=== PATIENT | female | born 1985 | race Caucasian/White ===

== ENCOUNTER 2017-02-07 18:18 | Observation (INO) | payer OTHER ==
[2017-02-07] MEDS ORDERED: DIAZEPAM 5 MG/ML SYRG ONE (18:42)
[2017-02-07 18:44] LABS: Hematocrit 30.8 % (37.0-47.0); Hemoglobin 10.4 gm/dL (12.5-16.0); Mean Cell Volume 93.1 fl (78-100); Mean Corpuscular Hemoglobin 31.4 pg (27-31); Mean Corpuscular Hgb Conc 33.8 g/dl (32-36); Neutrophil # 8.3 K/mm3 (1.3-6.0); Platelet Count 263 K/mm3 (150-450); Red Blood Count 3.31 M/mm3 (4.2-5.4); Red Cell Distribution Width 13.2 % (11.5-14.0); White Blood Count 13.1 K/mm3 (4.0-10.5)
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
--- OUTSIDE RECORDS SUMMARY | 2017-02-07 18:47 | XMS REPORT | CCD ---
:1985 Author Name KOBY PARSONS Address [address] [facility] Unavailable [place], [place] [id number] Care Team Providers Name Role Phone GLORIA ZARCO Attending Physician Unavailable Vital Signs Unknown or Not Available. [...] Date Resolved Date Status , THREATENED, ANTEPARTUM 62609688 11/10/2011 Active ASTHMA 284865980 11/10/2011 Active OPEN WOUND OF FINGER 884193200 08/29/2012 Active TOBACCO USE DISORDER 19291440 08/29/2012 Active DIZZINESS 552852070 02/03/2013 Active ESSENTIAL HYPERTENSION 10900680 02/03/2013 Active Results Unknown or Not Available. Active Medications Unknown or Not Available. Medications Administered During Visit Unknown or Not Available. 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 Discharge Instructions You were admitted to [facility] on 11/08/2015 08:57 with a principal diagnosis of Carcinoma in situ of cervix, unspecified You were discharged from [facility] on 11/08/2015 08:57 Should you have any questions prior to discharge, please contact a member of your healthcare team. If you have left the hospital and have any questions, please contact your primary care physician. Chief Complaint and Reason For Visit Unknown or Not Available. Function Status Unknown or Not Available. Plan of Care Unknown or Not Available. Referral/Transition of Care Unknown or Not Available.
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
--- OUTSIDE RECORDS SUMMARY | 2017-02-07 18:47 | XMS REPORT | CCD ---
:1985 Author Name PAT DEUTSCH Address [address] [facility] Unavailable [place], [place] [phone] Care Team Providers Name Role Phone KODY HO Attending Physician Unavailable KODY HO Er Physician 1 Unavailable Vital Signs Unknown [...] Date Resolved Date Status , THREATENED, ANTEPARTUM 94355970 11/10/2011 Active Fracture of the humerus 60727353 Active Concussion with no LOC 64836315 Active ASTHMA 235568482 11/10/2011 Active OPEN WOUND OF FINGER 440090813 08/29/2012 Active TOBACCO USE DISORDER 14219771 08/29/2012 Active DIZZINESS 131296383 02/03/2013 Active ESSENTIAL HYPERTENSION 31259936 02/03/2013 Active Results Unknown or Not Available. Active Medications Medication Code Dose Units Frequency Route Modification Start Date/Time Albuterol Sulfate 551989 1 EACH NEEDED INHALATION 12/09/2015 15:59 0.083% Inhalation Solution Prescription Detail 1 EACH INHALATION NEEDED Albuterol Sulfate 0.63MG/3ML 915216 1 EACH NEEDED INHALATION 2015 15:59 Inhalation Solution Prescription Detail 1 EACH INHALATION NEEDED Cara 180MG Oral Tablet 354599 1-2 TABLET NEEDED ORAL 12/09/2015 15:59 Prescription Detail TAKE 1-2 TABLET ORAL NEEDED HYDROcodone 913072 1 TABLET Every 4hr as BY MOUTH 12/09/2015 15:59 bitartrate-acetaminophen needed 10MG-325MG Oral Tablet Prescription Detail TAKE 1 TABLET BY MOUTH Every 4hr as needed Paxil 40MG Oral Tablet 952253 40 MILLIGRAMS DAILY ORAL 12/09/2015 15:59 Prescription Detail TAKE 40 MILLIGRAMS ORAL DAILY QVAR 0.08MG/1 Actuation Inhalation 9344690 2 PUFF DAILY INHALATION 15:59 Aerosol Liquid Prescription Detail 2 PUFF INHALATION DAILY Cephalexin 500MG Oral 567425 1 CAPSULE THREE TIMES A DAY BY MOUTH 12/08 15:39 Capsule Prescription Detail TAKE 1 CAPSULE BY MOUTH THREE TIMES A DAY Medications Administered During Visit Unknown or Not Available. Encounters Encounter Diagnosis Diagnosis Code Start Date Allergic contact dermatitis due to plants, except food L237 11/11/2015 Social History Smoking Status Code Start Date End Date Current every day smoker 591537804 Patient Decision Aids Unknown or Not Available. Discharge Instructions You were admitted to [facility] on 11/11/2015 13:45 with a principal diagnosis of Allergic contact dermatitis due to plants, except food You were discharged from [facility] on 11/11/2015 14:12 Should you have any questions prior to discharge, please contact a member of your healthcare team. If you have left the hospital and have any questions, please contact your primary care physician. Chief Complaint and Reason For Visit Chief Complaint Date of Onset HIVES Function Status Unknown or Not Available. Plan of Care Unknown or Not Available. Referral/Transition of Care Unknown or Not Available.
--- OUTSIDE RECORDS SUMMARY | 2017-02-07 18:47 | XMS REPORT | CCD ---
:1985 Author Name KOBY PARSONS Address [address] [facility] Unavailable [place], [place] [id number] Care Team Providers Name Role Phone GLORIA [...] Date Resolved Date Status , THREATENED, ANTEPARTUM 07762149 11/10/2011 Active ASTHMA 849863392 11/10/2011 Active OPEN WOUND OF FINGER 988959933 08/29/2012 Active TOBACCO USE DISORDER 36131057 08/29/2012 Active DIZZINESS 673322980 02/03/2013 Active ESSENTIAL HYPERTENSION 53345987 02/03/2013 Active Results Unknown or Not Available. Active Medications Unknown or Not Available. Medications Administered During Visit Unknown or Not Available. 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
--- OUTSIDE RECORDS SUMMARY | 2017-02-07 18:47 | XMS REPORT | CCD ---
:1985 Author Name PAT DEUTSCH Address [address] [facility] [place] [address] Care Team Providers Name Role Phone LEILA ARMIJO Attending Physician Unavailable Allergies Allergy Code Allergy Type Reaction Status IBUPROFEN 5640 Drug allergy Active NSAID 0 Drug allergy Active SHARRON INHIBITOR 0 Drug allergy Active No Known Food Allergies 0 Drug allergy Active No Known Drug Allergies 0 Drug allergy Active Active Medications Medication Code Dose Units Frequency Route Modification Start Date/Time Albuterol Sulfate 563337 1 EACH NEEDED INHALATION 12/09/2015 15:59 0.083% Inhalation Solution Prescription Detail 1 EACH INHALATION NEEDED Albuterol Sulfate 0.63MG/3ML 922878 1 EACH NEEDED INHALATION 2015 15:59 Inhalation Solution Prescription Detail 1 EACH INHALATION NEEDED Cara 180MG Oral Tablet 321380 1-2 TABLET NEEDED ORAL 12/09/2015 15:59 Prescription Detail TAKE 1-2 TABLET ORAL NEEDED HYDROcodone 261070 1 TABLET Every 4hr as BY MOUTH 12/09/2015 15:59 bitartrate-acetaminophen needed 10MG-325MG Oral Tablet Prescription Detail TAKE 1 TABLET BY MOUTH Every 4hr as needed Paxil 40MG Oral Tablet 047626 40 MILLIGRAMS DAILY ORAL 12/09/2015 15:59 Prescription Detail TAKE 40 MILLIGRAMS ORAL DAILY QVAR 0.08MG/1 Actuation Inhalation 5181767 2 PUFF DAILY INHALATION 15:59 Aerosol Liquid Prescription Detail 2 PUFF INHALATION DAILY Cephalexin 500MG Oral 967472 1 CAPSULE THREE TIMES A DAY BY MOUTH 12/08 15:39 Capsule Prescription Detail TAKE 1 CAPSULE BY MOUTH THREE TIMES A DAY Problems Problem Code Start Date Resolved Date Status , THREATENED, ANTEPARTUM 76699215 11/10/2011 Active Fracture of the humerus 27775087 Active Concussion with no LOC 03476538 Active ASTHMA 684097265 11/10/2011 Active OPEN WOUND OF FINGER 129960738 08/29/2012 Active TOBACCO USE DISORDER 60207084 08/29/2012 Active DIZZINESS 784145375 02/03/2013 Active ESSENTIAL HYPERTENSION 53573745 02/03/2013 Active Procedures Unknown or Not Available. Results Unknown or Not Available. Encounters Encounter Diagnosis Diagnosis Code Start Date Encounter for removal of sutures Z4802 12/15/2015 Function Status Unknown or Not Available. History of Immunizations Immunization Code Date Tdap 115 04/30/2012 Td(adult) unspecified formulation 139 04/01/2007 no vaccine administered 998 1985 Plan of Treatment Unknown or Not Available. Social History Smoking Status Code Start Date End Date Current every day smoker 690930887 Vital Signs Unknown or Not Available. Function Status Unknown or Not Available. Goals Unknown or Not Available. ASSESSMENTS Unknown or Not Available. Health Concerns Section Unknown or Not Available.
[2017-02-07] MEDS ORDERED: DIAZEPAM 5 MG/ML SYRG IV ONE (18:49)
[2017-02-07] MEDS ORDERED: NORMAL SALINE 1,000 ML IV ONE (18:50)
[2017-02-07 18:59] LABS: ALT 21 U/L (19-67); AST 15 U/L (0-48); Albumin * 3.9 gm/dl (3.4-5.0); Alkaline Phosphatase * 115 U/L (50-170); Anion Gap 19.7 mmol/L (6.8-13.8); BUN/Creatinine Ratio 17.9 (9.0-21.6); Bilirubin, Total 0.3 mg/dL (0.0-1.1); Blood Urea Nitrogen 36 mg/dL (3-23); Ca. Corrected For Albumin 7.5 mg/dL (8.4-10.2); Calcium * 7.7 mg/dL (7.9-10.9); Carbon Dioxide 22.1 mmol/L (24-32.6); Chloride 95 mmol/L (97-106); Glucose * 93 mg/dL (70-110); Potassium 2.8 mmol/L (3.4-4.6); Sodium 134 mmol/L (132-142); Total Protein 7.7 gm/dL (6.2-8.2)
--- NOTE | 2017-02-07 19:14 | ERNOTE ---
Neuro HPI ER Record Date of Service: 02/07/17 Presenting Symptoms: other - patient at [facility] had seizure, brought to hospital by [facility], patient alert reports she had a seizure two years ago but did not report it or seek treatment Time Seen by Provider: 02/07/17 18:20 Source: patient Exam Limitations: no limitations Immunizations: IMMUNIZATION HX Immunizations Up to Date Yes History of Influenza Vaccine Yes Hx Pneumococcal Vaccination No Allergies/Adverse Reactions: Allergies Allergy/AdvReac Type Severity Reaction Status Date / Time SHARRON Inhibitors Allergy Anaphylaxis Verified 12/10/15 22:43 NSAIDS (Non-Steroidal Allergy Anaphylaxis Verified 12/10/15 22:43 Anti-Inflamma Home Medications: HOME MEDICATIONS Albuterol Sulfate [Albuterol Sulfate 2.5 MG/0.5ML] 1 vial IH Q4H PRN 12/10/15 [ Last Taken Unknown] Hydrochlorothiazide 50 mg PO DAILY 12/10/15 [Last Taken Unknown] Bupropion HCl [Wellbutrin Sr] 200 mg PO DAILY 02/07/17 [Last Taken Unknown] Venlafaxine HCl [Effexor Xr] 224 mg PO DAILY 02/07/17 [Last Taken Unknown] - History of Present Illness Narrative: see aboveshortly after arrival patient had tonic clonic seizure treated with valium sent to ct Onset: sudden onset, gone now Severity: moderate - Character of Deficits New weakness: Present: general (diffuse) Additional Deficits: Present: impaired speech Baseline Cognition: Present: alert, oriented x 4 Baseline Gait: Present: walks w/o assistance Associated Symptoms: Reports: seizure Prior Treament: Reports: other - no prior treatment Review of Systems - Review of Systems Constitutional: Present: See HPI EYE: Present: no symptoms reported ENT: Present: no symptoms reported Respiratory: Present: no symptoms reported Cardiology: Present: no symptoms reported Gastrointestinal/Abdominal: Present: no symptoms reported Genitourinary: Present: no symptoms reported Musculoskeletal: Present: no symptoms reported Skin: Present: no symptoms reported Neurological: Present: See HPI, seizure, weakness Endocrine: Present: no symptoms reported Hematologic/Lymphatic: Present: no symptoms reported Psych: Present: no symptoms reported All Other Systems: All systems neg except as marked - Patient's Past Medical History Patient History - Medical: Anxiety, Depression, Seizures, Other - reports single seizure two years previous Patient History - Cardiac/Respiratory: Asthma, Hypertension Patient History - Cancer: No Hx of Cancer Patient History - Surgical Procedures: Patient History - Other: None LMP (females 10-50): last week - Family History Family History:: no untoward family reactions to anesthesia, no familial bleeding tendencies, no family history of premature - Social History Living Situations: home Abuse History: Hx of Substance Use Psych History: Hx of Anxiety, Hx of Depression Smoking Status: Current every day smoker Have you smoked in the past 12 months: Yes Do you dip or chew tobacco: Yes Patient requests Smoking Cessation Consult: Yes Alcohol Use: occasionally Drug Use: meth - Immunizations Immunizations Up to Date: Yes Hx Pneumococcal Vaccination: No History of Influenza Vaccine: Yes Physical Exam - Physical Exam General Appearance: Present: alert, lethargic Head Exam: Present: normal inspection, no evidence of injury Eye Exam: Normal inspection: bilateral, PERRL: bilateral, EOMI: bilateral, Abnormal EOM: bilateral, Abnormal pupil: bilateral, Sclera injection: bilateral , Scleral icterus: bilateral, Eye drainage: bilateral, Eyelid inflammation: bilateral, Conjunctivae pale: bilateral, Photophobia: bilateral, Other: bilateral Ears, Nose, Throat: Present: normal ENT inspection, normal pharynx Neck: Present: normal inspection, nontender Respiratory: Present: no respiratory distress, normal breath sounds, no accessory muscle use, chest nontender, lungs clear Cardiovascular/Chest: Present: regular rate, rhythm, no murmur, normal peripheral pulses Peripheral Pulses: N=norm/S=strong/W=weak/B=bound/A=absent: Carotid (R): Normal , Carotid (L): Normal, Radial (R): Normal, Radial (L): Normal, Femoral (R): Normal, Femoral (L): Normal, Dorsalis-pedis (R): Normal, Dorsalis-pedis (L): Normal Gastrointestinal/Abdominal: Present: normal bowel sounds, nontender, nondistended, soft, no organomegaly Back Exam: Present: normal inspection, normal range of motion, no CVA tenderness , no vertebral tenderness Extremity Exam: Present: normal inspection, non-tender, normal range of motion, no edema Neurological Exam: Present: alert, oriented, normal mood/affect, no motor/ sensory deficits DTR: N=norm/NB=norm/brisk/A=abs/DD=dull/dimin/HC=hyperactive: Bicep (R): Normal , Bicep (L): Normal, Tricep (R): Normal, Tricep (L): Normal, Knee (R): Normal, Knee (L): Normal, Ankle (R): Normal, Ankle (L): Normal Skin Exam: Present: normal color, warm/dry Lymphatic Exam: Present: no adenopathy [place] Coma Scale - Assess Eye Opening: Spontaneous Motor: Obeys Commands Verbal: Oriented - Total Coma Scale Total: 15 ED Progress - Results and Orders Patient's Lab Results:: I have reviewed the patient's lab results. - Vital Signs Patient's Vital Signs:: I have reviewed the patient's vital signs. Vital Signs: Vital Signs 02/07/17 02/07/17 02/07/17 18:19 18:32 18:33 Temperature 37.7 C H Pulse Rate 108 H 108 H 109 H Respiratory 20 Rate Blood Pressure 128/78 O2 Sat by Pulse 97 Oximetry - EKG EKG: NSR - Progress/Reassessment Chief Complaint: Seizure Activity Progress:: Improved Progress Note-Subjective: 02/07/17 19:34 patient post ictal, case discussed with dr warren. to be admitted - Transfer of Care Expected Disposition: Admit Plan - Plan Plan: to be admitted Departure Clinical Impression: Seizure - Departure Disposition: [facility] Condition: Fair - Critical Care Total Time (mins): 30
[2017-02-07 19:20] LABS: Cocaine Ur Negative (NEGATIVE); Urine Barbiturate Negative (NEGATIVE); Urine Benzodiazepines Negative (NEGATIVE); Urine Opiates Negative (NEGATIVE); Urine PCP Negative (NEGATIVE); Urine THC Negative (NEGATIVE)
[2017-02-07] MEDS ORDERED: POTASSIUM CHLORIDE 20 MEQ in NORMAL SALINE 1,000 ML IV PRN (19:37)
[2017-02-07 19:44] LABS: Urine Appearance Clear; Urine Bacteria None Seen; Urine Bilirubin Negative (NEGATIVE); Urine Blood 10 /ul (NEGATIVE); Urine Color Yellow; Urine Ketone Negative (NEGATIVE); Urine Nitrite Negative (NEGATIVE); Urine Protein Negative (NEGATIVE); Urine RBC None Seen /hpf (0-5); Urine Urobilinogen Normal (NORMAL); Urine WBC None Seen /hpf (0-5); Urine pH 5.5 pH (5.0-7.0)
[2017-02-07] MEDS ORDERED: POTASSIUM CHLORIDE 20 MEQ in NORMAL SALINE 1,000 ML IV SCH (19:45)
[2017-02-07] MEDS ORDERED: LORazepam 2 MG/ML DISP.SYRIN IV PRN (21:01)
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
[2017-02-07] MEDS ORDERED: POTASSIUM CHLORIDE 40 MEQ/15 ML BTL PO ONE (22:11)
[2017-02-07] MEDS ORDERED: ALBUTEROL SULFATE 2.5 MG/0.5 ML VIAL.NEB IH PRN (22:29)
[2017-02-08] MEDS ORDERED: LORazepam 2 MG/ML DISP.SYRIN IV PRN (00:48)
[2017-02-08] MEDS ORDERED: traMADol HCL 50 MG TABLET PO PRN (04:56)
[2017-02-08 06:01] LABS: Hemoglobin 9.4 gm/dL (12.5-16.0); Mean Cell Volume 95.6 fl (78-100); Mean Corpuscular Hemoglobin 32.1 pg (27-31); Mean Corpuscular Hgb Conc 33.6 g/dl (32-36); Mean Platelet Volume 10.6 fl (6.0-9.5); Neutrophil # 7.7 K/mm3 (1.3-6.0); Neutrophil % 65.9 % (42-75.0); Platelet Count 221 K/mm3 (150-450); Red Blood Count 2.93 M/mm3 (4.2-5.4); Red Cell Distribution Width 13.4 % (11.5-14.0); White Blood Count 11.7 K/mm3 (4.0-10.5)
[2017-02-08 06:15] LABS: Anion Gap 15.9 mmol/L (6.8-13.8); BUN/Creatinine Ratio 22.2 (9.0-21.6); Calcium * 7.6 mg/dL (7.9-10.9); Carbon Dioxide 24.1 mmol/L (24-32.6); Estimated Creat Clear 61.3
[2017-02-08] MEDS ORDERED: POTASSIUM CHLORIDE 20 MEQ in NORMAL SALINE 1,000 ML IV SCH ×2 (06:15→16:00)
[2017-02-08] MEDS ORDERED: ALBUTEROL SULFATE 2.5 MG/3 ML VIAL.NEB IH PRN (06:19)
[2017-02-08] MEDS ORDERED: BUDESONIDE 0.5 MG/2 ML VIAL.NEB IH SCH (07:00)
[2017-02-08] MEDS ORDERED: POTASSIUM CHLORIDE 20 MEQ TABLET.SA PO ONE ×3 (07:00→12:00)
[2017-02-08] MEDS ORDERED: VENLAFAXINE HCL 150 MG CAP.SR.24H PO SCH ×2 (09:00)
[2017-02-08] MEDS ORDERED: HYDROCHLOROTHIAZIDE 25 MG TABLET PO SCH (09:00)
[2017-02-08] MEDS ORDERED: BUPROPION 200 MG PO SCH (09:00)
[2017-02-08] MEDS ORDERED: buPROPion HCL 150 MG TABLET.SA PO SCH (09:00)
[2017-02-08] MEDS ORDERED: VENLAFAXINE HCL 150 MG, VENLAFAXINE HCL 75 MG PO SCH ×2 (09:30)
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
[2017-02-08 10:46] VITALS: BP 111/61
[2017-02-08] MEDS ORDERED: levETIRAcetam 500 MG TABLET PO SCH (21:00)
== END 2017-02-08 15:15 | disposition home or self-care (01) ==
LOC: ER 18:18 → MS 19:37
PROVIDERS: ADMIT Internal Medicine; ATTEND Internal Medicine
PROC: 0T9B7ZZ Drainage of Bladder, Via Natural or Artificial Opening (ICD-10-PCS; principal; 2017-02-07)
DX: R56.9 Unspecified convulsions (principal); N17.9 Acute kidney failure, unspecified; E87.6 Hypokalemia; I10 Essential (primary) hypertension; F41.8 Other specified anxiety disorders; J45.909 Unspecified asthma, uncomplicated; F17.200 Nicotine dependence, unspecified, uncomplicated
CPT/HCPCS: 36415; 51701; 70450; 80048; 80053; 80307; 81001; 84703; 85025; 93005; 94640; 96365; 96366; 96374; 99291; G0378; G0481